=== PATIENT | male | born 1965 | race African-American/Black ===

== ENCOUNTER 2023-08-07 12:57 | Inpatient (IN) | payer OTHER ==
[2023-08-07] MEDS ORDERED: LOPERAMIDE HCL 2 MG CAPSULE PO PRN (15:38)
[2023-08-07] MEDS ORDERED: BENZOCAINE/MENTHOL (CHLORASEPTIC ) LOZENGE MM PRN (15:38)
[2023-08-07] MEDS ORDERED: IBUPROFEN 600 MG TABLET (FP) PO PRN (15:38)
[2023-08-07] MEDS ORDERED: MAG HYDROX/AL HYDROX/SIMETH 30 ML UNIT-DOSE CUP PO PRN (15:38)
[2023-08-07] MEDS ORDERED: POLYETHYLENE GLYCOL (HEALTHYLAX) 3350 17 GM PACKET PO PRN (15:38)
[2023-08-07] MEDS ORDERED: DOCUSATE SODIUM 100 MG CAPSULE (FP) PO PRN (15:38)
[2023-08-07] MEDS ORDERED: MAGNESIUM HYDROX 2400MG/30ML ORAL SUSPENSION 30 ML CUP PO PRN (15:38)
[2023-08-07] MEDS ORDERED: BENZONATATE 200 MG CAPSULE PO PRN (15:38)
[2023-08-07] MEDS ORDERED: IBUPROFEN 400 MG TABLET (FP) PO PRN (15:38)
[2023-08-07] MEDS ORDERED: hydrOXYzine PAMOATE 25 MG CAPSULE (FP) PO PRN (15:38)
[2023-08-07] MEDS ORDERED: guaiFENesin 600 MG TABLET.ER (FP) PO PRN (15:38)
[2023-08-07] MEDS ORDERED: ACETAMINOPHEN 325 MG TABLET (FP) PO PRN (15:38)
[2023-08-07] MEDS ORDERED: TUBERCULIN PPD 5 TU/0.1ML VIAL ID ONE (20:23)
[2023-08-07] MEDS: MELATONIN 5 MG TABLETS PO SCH (21:33)
[2023-08-07] MEDS: THIAMINE 100 MG TABLET PO SCH (21:34)
[2023-08-07] MEDS: TUBERCULIN PPD 5 TU/0.1ML SYRINGE (IN PATIENT USE ONLY) ID ONE (21:34)
[2023-08-08 10:44] LABS: PH,URINE 5.5 (5.0-8.0); URINE APPEARANCE CLEAR; URINE BILIRUBIN NEGATIVE (NEGATIVE); URINE COLOR YELLOW; URINE GLUCOSE (UA) NEGATIVE (NEGATIVE); URINE KETONE TRACE (NEGATIVE); URINE LEUK ESTERASE NEGATIVE (NEGATIVE); URINE NITRITE NEGATIVE (NEGATIVE); URINE PROTEIN NEGATIVE (NEGATIVE)
[2023-08-08 10:51] LABS: POTASSIUM 4.5 mmol/L (3.5-5.1)
[2023-08-08 10:57] LABS: HEMATOCRIT 44.6 % (35.4-49); HEMOGLOBIN 14.7 GM/dL (11.7-16.9); MCH 31.2 pg (25.7-33.7); MCHC 32.8 g/dl (32.0-35.9); MEAN CELL VOLUME 95.2 fl (80-96); MEAN PLT VOLUME 7.9 fl (7.5-11.1); PLATELET COUNT 267 10^3/uL (134-434); RBC 4.69 M/mm3 (4.00-5.60); RDW 13.9 % (11.9-15.9); WHITE BLOOD COUNT 4.8 K/mm3 (4.0-10.0)
[2023-08-08 11:00] LABS: CALCIUM 8.8 mg/dL (8.5-10.1)
[2023-08-08 11:01] LABS: ALBUMIN 3.4 g/dl (3.4-5.0)
[2023-08-08 11:04] LABS: CREATININE 1.1 mg/dL (0.55-1.3)
[2023-08-08 11:05] LABS: BILIRUBIN,TOTAL 0.7 mg/dL (0.2-1); TOT PROT 6.2 g/dl (6.4-8.2)
[2023-08-08] MEDS: PRENATAL VITAMINS W/ FOLIC ACID TABLET (FP) PO SCH (11:05)
[2023-08-08] MEDS ORDERED: amLODIPine BESYLATE 5 MG TABLET (FP) PO SCH (11:45)
[2023-08-08 16:31] LABS: SYPHILIS W/ RPR CONF NON-REACTIVE (NONREACTIVE)
[2023-08-10] MEDS: NICOTINE POLACRILEX 4 MG GUM BUC PRN (10:31)
[2023-08-13] MEDS: NICOTINE POLACRILEX 4 MG GUM BUC PRN (10:02)
[2023-08-14] MEDS: NALTREXONE HCL 50 MG TABLET PO ONE (13:20)
[2023-08-15] MEDS: NALTREXONE HCL 50 MG TABLET PO SCH (09:57)
[2023-08-18] MEDS: NICOTINE POLACRILEX 2 MG GUM BUC PRN (09:58)
[2023-08-19] MEDS ORDERED: NALTREXONE MICROSPHERES (VIVITROL) 380 MG DISP.SYRIN IM ONE (18:00)
[2023-08-20 06:53] VITALS: BP 116/61; PULSE 69; RESP 16; TEMP 97.3
[2023-08-20] MEDS ORDERED: NALTREXONE MICROSPHERES (VIVITROL) 380 MG DISP.SYRIN IM ONE ×2 (11:00→18:00)
== END 2023-08-20 08:42 | disposition home or self-care (01) | DRG 772 ==
LOC: YASAS 12:57 → Y3NR 18:45 → Y3W 19:18
PROVIDERS: ADMIT Allergy & Immunology; ATTEND Psychiatry & Neurology Pain Medicine
PROC: HZ42ZZZ Group Counseling for Substance Abuse Treatment, Cognitive-Behavioral (ICD-10-PCS; principal; 2023-08-07)
DX: F14.20 Cocaine dependence, uncomplicated (principal); F10.20 Alcohol dependence, uncomplicated; F17.210 Nicotine dependence, cigarettes, uncomplicated; R73.03 Prediabetes; Z88.1 Allergy status to other antibiotic agents
CPT/HCPCS: 36415; 71045-TC-FY; 80053; 80305; 81003; 82962; 85027; 86780; 86803; 93005; 93010

== ENCOUNTER 2024-02-21 08:16 | Inpatient (IN) | payer OTHER ==
[2024-02-21 08:53] VITALS: BMI 18.8
[2024-02-21] MEDS ORDERED: IBUPROFEN 600 MG TABLET (FP) PO PRN (10:39)
[2024-02-21] MEDS ORDERED: guaiFENesin 600 MG TABLET.ER (FP) PO PRN (10:39)
[2024-02-21] MEDS ORDERED: MAGNESIUM HYDROX 2400MG/30ML ORAL SUSPENSION 30 ML CUP PO PRN (10:39)
[2024-02-21] MEDS ORDERED: ACETAMINOPHEN 325 MG TABLET (FP) PO PRN (10:39)
[2024-02-21] MEDS ORDERED: LOPERAMIDE HCL 2 MG CAPSULE PO PRN (10:39)
[2024-02-21] MEDS ORDERED: NALOXONE (NARCAN) HCL 4 MG/0.1 ML SPRAY NS PRN (10:39)
[2024-02-21] MEDS ORDERED: DICYCLOMINE HCL 10 MG CAPSULE PO PRN (10:39)
[2024-02-21] MEDS ORDERED: BENZOCAINE/MENTHOL (CHLORASEPTIC ) LOZENGE MM PRN (10:39)
[2024-02-21] MEDS ORDERED: ONDANSETRON *ODT* 4 MG TABLET SL PRN (10:39)
[2024-02-21] MEDS ORDERED: IBUPROFEN 400 MG TABLET (FP) PO PRN (10:39)
[2024-02-21] MEDS ORDERED: BENZONATATE 200 MG CAPSULE PO PRN (10:39)
[2024-02-21] MEDS ORDERED: POLYETHYLENE GLYCOL (HEALTHYLAX) 3350 17 GM PACKET PO PRN (10:39)
[2024-02-21] MEDS ORDERED: BISMUTH SUBSALICYLATE 524 MG/30 ML PO PRN (10:39)
[2024-02-21] MEDS ORDERED: chlordiazePOXIDE HCL 25 MG CAPSULE PO PRN (10:44)
[2024-02-21] MEDS: chlordiazePOXIDE HCL 25 MG CAPSULE PO SCH (17:30)
[2024-02-21] MEDS: THIAMINE 100 MG TABLET PO SCH (23:12)
[2024-02-21] MEDS: MELATONIN 5 MG TABLETS PO SCH (23:12)
[2024-02-22 09:04] LABS: HEMATOCRIT 38.3 % (35.4-49); MCH 32.4 pg (25.7-33.7); MEAN CELL VOLUME 95.3 fl (80-96); PLATELET COUNT 248 10^3/uL (134-434); RBC 4.02 M/mm3 (4.00-5.60); RDW 13.8 % (11.9-15.9); WHITE BLOOD COUNT 4.1 K/mm3 (4.0-10.0)
[2024-02-22 09:29] LABS: CALCIUM 8.4 mg/dL (8.5-10.1)
[2024-02-22 09:31] LABS: BLOOD UREA NITROGEN 11.2 mg/dL (7-18)
[2024-02-22 09:34] LABS: CREATININE 0.8 mg/dL (0.55-1.3)
[2024-02-22 09:35] LABS: BILIRUBIN,TOTAL 0.2 mg/dL (0.2-1); TOT PROT 5.7 g/dl (6.4-8.2)
[2024-02-22] MEDS: PRENATAL VITAMINS W/ FOLIC ACID TABLET (FP) PO SCH (10:21)
[2024-02-22] MEDS: NALTREXONE HCL 50 MG TABLET PO SCH (10:21)
[2024-02-23] MEDS: chlordiazePOXIDE HCL 25 MG CAPSULE PO SCH (05:58)
[2024-02-24] MEDS ORDERED: chlordiazePOXIDE HCL 10 MG CAPSULE PO PRN
[2024-02-24] MEDS: chlordiazePOXIDE HCL 10 MG CAPSULE PO SCH (05:50)
[2024-02-24] MEDS: MAG HYDROX/AL HYDROX/SIMETH 30 ML UNIT-DOSE CUP PO PRN (10:52)
[2024-02-24] MEDS: METHOCARBAMOL 500 MG TABLET PO PRN (22:27)
[2024-02-25] MEDS: chlordiazePOXIDE HCL 10 MG CAPSULE PO SCH (05:45)
[2024-02-25] MEDS: NICOTINE 21 MG/24 HOURS TOPICAL PATCH TD SCH (11:08)
[2024-02-25] MEDS: hydrOXYzine PAMOATE 25 MG CAPSULE (FP) PO PRN (22:12)
[2024-02-26] MEDS: chlordiazePOXIDE HCL 10 MG CAPSULE PO ONE (06:00)
[2024-02-26 06:05] VITALS: TEMP 97.7
[2024-02-26] MEDS: NALOXONE (NYS OPIOID OVERDOSE PROGRAM) 4 MG/0.1 ML SPRAY NS SCH (08:55)
[2024-02-26 09:20] VITALS: BP 111/80; PULSE 93; RESP 18
== END 2024-02-26 09:16 | disposition home or self-care (01) | DRG 774 ==
LOC: YASAS 08:16 → Y3N 12:12
PROVIDERS: ADMIT Allergy & Immunology; ATTEND Surgery
PROC: HZ2ZZZZ Detoxification Services for Substance Abuse Treatment (ICD-10-PCS; principal; 2024-02-21)
DX: F10.230 Alcohol dependence with withdrawal, uncomplicated (principal); F14.10 Cocaine abuse, uncomplicated; F17.210 Nicotine dependence, cigarettes, uncomplicated; J44.9 Chronic obstructive pulmonary disease, unspecified
CPT/HCPCS: 36415; 80053; 80307; 85027; 86780; 93005; 93010